=== PATIENT | male | born 1985 | race Caucasian/White ===

== ENCOUNTER 2018-04-05 21:34 | Emergency (ER) | payer OTHER, SELFPAY ==
[2018-04-05 22:28] VITALS: BP 139/99; PULSE 88; RESP 18; TEMP 37.1; O2SAT 96; BMI 47.5
--- NOTE | 2018-04-06 02:33 | ED.BACK ---
HPI - Back Pain/Injury General Chief Complaint: Back Pain/Injury Stated Complaint: BACK AND BOTH LEGS HURT Time Seen by Provider: 04/06/18 02:23 Source: patient Mode of arrival: ambulatory Limitations: no limitations History of Present Illness HPI Narrative: patient is a 32-year-old male with chronic back pain presenting with acute back pain today. He has been doing physical therapy and trying to exercise and lose weight. He does the elliptical daily for 10-20 minutes. He was on the elliptical today however he had to stop due to increased pain. He has some numbness and tingling down both of his legs. This is in the same place for his pain always is it just happens to be worse. He was prescribed Cymbalta to help with his pain he has not taken Tylenol or ibuprofen this evening. He denies any fall. MD Complaint: back pain Related Data Home Medications Medication Instructions Recorded Confirmed acetaminophen 325 mg PO #0 11/28/16 acetaminophen [Acephen] #0 11/28/16 penicillin V potassium PO Q6H #0 11/28/16 Previous Rx's Medication Instructions Recorded amoxicillin-pot clavulanate 875 mg PO BID #6 tab 11/28/16 [Augmentin] Allergies Allergy/AdvReac Type Severity Reaction Status Date / Time No Known Allergies Allergy Uncoded 12/23/17 12:42 Review of Systems Review of Systems GENERAL: Denies chills, fatigue, malaise, fever, sweats, travel HEENT: Denies sinus pain, ear pain, sore throat, difficulty swallowing, neck pain RESPIRATORY: Denies dyspnea, cough, wheezing, hemoptysis, sputum. CARDIOVASCULAR: Denies chest pain, palpitations, orthopnea, edema GASTROINTESTINAL: Denies nausea, vomiting, abdominal pain, diarrhea, constipation, melena. : Denies dysuria, frequency, incontinence, hematuria, urinary retention, flank pain. MUSCULOSKELETAL: See HPI SKIN: No rash, no erythema, no pruritus NEUROLOGIC: Denies weakness, dizziness, headache, numbness, change in speech, confusion PSYCHIATRIC: No concerning psychosocial issues. 12 point review of systems is negative except for those stated above and HPI PFSH Medical History Chronic low back pain (Acute) Social History Smoking Status: Never smoker Exam Initial Vital Signs Initial Vital Signs: Vital Signs Temperature 98.8 F 04/05/18 22:28 Pulse Rate 88 04/05/18 22:28 Respiratory Rate 18 07/23/18 22:28 Blood Pressure 139/99 H 04/05/18 22:28 Pulse Oximetry 96 04/05/18 22:28 GENERAL: Well-appearing, obese male CARDIOVASCULAR: peripheral pulses in tact, cap refill <2 sec RESPIRATORY: No respiratory distress, speaks in full sentences without difficulty BACK: no vertebral tenderness pain at thoraco lumbar junction. No step-offs do deformities. EXTREMITIES: Normal range of motion, no clubbing or edema. Neurovascularly intact NEUROLOGICAL: Cranial nerves II through XII grossly intact. Normal gait and speech. SKIN: Warm, dry, no petechiae, no rashes or lesions. Course Orders Ordered: Discontinued Medications Ketorolac Tromethamine (Toradol) 60 mg IM NOW ONE Stop: 04/06/18 02:41 Last Admin: 04/06/18 02:46 Dose: 60 mg Vital Signs - 8 hr 04/05/18 22:28 04/06/18 03:00 Temperature 98.8 F Pulse Rate 88 81 Respiratory Rate 18 18 Blood Pressure 139/99 H Blood Pressure [Left Wrist] 149/98 H Pulse Oximetry 96 98 MDM - Back Pain/Injury MDM Narrative Medical decision making narrative: pain significantly improved after Toradol he is feeling much better sitting up ready and able to go home. Discharge Plan Departure Patient Disposition: Home, Self-Care Clinical Impression: Acute exacerbation of chronic low back pain Discharge Date/Time: 04/06/18 03:16 Interventions: ED Discharge Assessment Last Done: 04/06/18 03:14 Instructions: Back Pain (Alternative Therapy), DI for Low Back Pain Activity Restrictions/Additional Instructions: *You have been diagnosed with acute on chronic back pain *What to do: continue with physical therapy and previous recommendation *Continue to take medications as directed *Follow up with your primary care provider in 2-3 days *Return to ER if you should have numbness, tingling, increased weaknessor any new, worsening or concerning symptoms Prescriptions: No Action acetaminophen 325 MG tablet 325 mg PO Qty: 0 RF: 0 penicillin V potassium 250 mg Tablet PO Q6H Qty: 0 RF: 0 acetaminophen [Acephen] 325 MG suppository Qty: 0 RF: 0 amoxicillin-pot clavulanate [Augmentin] 875 MG/125 MG tablet 875 mg PO BID Qty: 6 RF: 0 Referrals: Adolfo Lobo MD [Non-Staff] -
[2018-04-06] MEDS: KETOROLAC 60 MG/2 ML VIAL IM (02:46)
[2018-04-06 03:00] VITALS: BP 149/98; PULSE 81; RESP 18; O2SAT 98
== END 2018-04-06 03:16 | disposition home or self-care (01) ==
PROVIDERS: Emergency Provider Emergency Medicine
DX: M54.2 Cervicalgia (principal)
CPT/HCPCS: 96372; 99282; 99283; J1885

== ENCOUNTER → 2019-07-18 12:50 | Outpatient (CLI) | payer OTHER, MEDICAID, SELFPAY ==
--- NOTE | 2019-07-18 12:54 | DI.RAD.S_ITS ---
PROCEDURE: XR LUMBAR SPINE MIN 4V INDICATIONS: spondylosis TECHNIQUE: 5 views of the lumbar spine were acquired. COMPARISON: None. FINDINGS: Bones: 5 nonrib-bearing vertebrae are present. There is normal bony alignment. No vertebral body compression fractures. No suspicious bony lesions. Lower lumbar facet arthropathy. Soft tissues: Overlying bowel gas pattern is normal. No suspicious soft tissue calcifications. Oblique images: No pars defects. IMPRESSION: Lower lumbar facet arthropathy. Dictated by: Delonte Siu M.D. on 07/18/2019 at 17:09 Approved by: Delonte Siu M.D. on 07/18/2019 at 17:10
== END ==
PROVIDERS: Family Provider Family Medicine; PCP Family Medicine; Visit Provider Physical Medicine & Rehabilitation
DX: M51.27 Other intervertebral disc displacement, lumbosacral region (principal); M47.27 Other spondylosis with radiculopathy, lumbosacral region
CPT/HCPCS: 72110

== ENCOUNTER → 2019-11-17 17:04 | Outpatient (CLI) | payer OTHER, SELFPAY ==
--- NOTE | 2019-11-17 17:15 | DI.MRI.S_ITS ---
PROCEDURE: MR LUMBAR SPINE WO CON INDICATIONS: L5-S1 HNP TECHNIQUE: Noncontrast sagittal T1 spin echo and T2 fast echo, sagittal STIR, axial T1 and T2 fast spin echo through the lumbar spine. In cases with scoliosis, additional coronal T2 fast spin echo may be performed. COMPARISON: [facility], CR, XR LUMBAR SPINE WITH OBLIQUES, 09/25/2017, 11:47. [facility], RG, MRI L-SPINE W/O CONTRAST, 08/27/2016, 17:13. [facility], CR, XR LUMBAR SPINE MIN 4V, 07/18/2019, 12:52. FINDINGS: Image quality: Excellent. Alignment and Curvature: There is normal bony alignment. Bone Marrow: Marrow is of normal overall signal. No acute vertebral body compression fractures. Spinal Cord: Conus medullaris terminates at the L1 level. Visualized cord demonstrates normal signal and size. Paraspinous Soft Tissues: No paravertebral masses. L1-L2: Normal appearance. L2-L3: Normal appearance. L3-L4: Normal appearance. L4-L5: Normal appearance. L5-S1: Loss of disc signal. Mild, diffuse disc bulge. Moderate-sized right central disc extrusion. Extruded disc material abuts and compresses the traversing right S1 nerve root. No central stenosis. Mild bilateral neural foraminal narrowing. IMPRESSION: 1. Mild L5-S1 degenerative disease 2. L5-S1-1 central disc extrusion. Extruded disc material impinges upon and compresses the traversing right S1 nerve root. 3. No central stenosis. 4. Mild bilateral L5-S1 neural foraminal narrowing. Dictated by: Annamarie Lou MD, PhD on 11/17/2019 at 18:11 Approved by: Annamarie Lou MD, PhD on 11/17/2019 at 18:15
== END ==
PROVIDERS: Family Provider Family Medicine; PCP Family Medicine; Referring Provider Physical Medicine & Rehabilitation; Visit Provider Physical Medicine & Rehabilitation
DX: M51.17 Intervertebral disc disorders with radiculopathy, lumbosacral region (principal); M48.07 Spinal stenosis, lumbosacral region
CPT/HCPCS: 72148